=== PATIENT | female | born 1935 | race Hispanic/Latino ===

== ENCOUNTER 2017-09-12 09:56 | Emergency (ER) | payer MEDICARE ==
[2017-09-12 10:25] VITALS: RESP 18; TEMP 98.5; BMI 28.4
--- NOTE | 2017-09-12 10:32 | ED PDOC ---
Arrival/HPI - General Chief Complaint: Cough, Cold, Congestion Time Seen by Provider: 09/12/17 09:57 Historian: Patient, Family - History of Present Illness Narrative History of Present Illness (Text): 09/12/17 10:25 A 82 year old female, whose past medical history includes hypertension and hyperlipidemia, presents to the emergency department for unchanged bronchitis. The patient states she saw her primary doctor Dr. Denton 2 days ago who diagnosed her with bronchitis. She notes her symptoms have not gotten better and she is still having a lot of wheezing and dry cough. The patient denies any fever, chest pain, abdominal pain, or any other complaints at this time. Time/Duration: < week Symptom Onset: Gradual Symptom Course: Unchanged Activities at Onset: Light Context: Home Past Medical History - Provider Review Nursing Documentation Reviewed: Yes - Tetanus Immunization Tetanus Immunization: Unknown - Cardiac Hx Cardiac Disorders: Yes Hx Hypertension: Yes - Pulmonary Hx Respiratory Disorders: Yes Hx Bronchitis: Yes - Neurological Hx Neurological Disorder: No - HEENT Hx HEENT Disorder: No - Renal Hx Renal Disorder: No - Endocrine/Metabolic Hx Endocrine Disorders: No - Hematological/Oncological Hx Blood Disorders: No - Integumentary Hx Dermatological Disorder: No - Musculoskeletal/Rheumatological Hx Musculoskeletal Disorders: No - Gastrointestinal Hx Gastrointestinal Disorders: No - Genitourinary/Gynecological Hx Genitourinary Disorders: No - Psychiatric Hx Psychophysiologic Disorder: No Hx Depression: No Hx Emotional Abuse: No Hx Physical Abuse: No Hx Substance Use: No - Surgical History Hx Appendectomy: Yes Hx Section: Yes - Anesthesia Hx Anesthesia: No Hx Anesthesia Reactions: No - Suicidal Assessment Feels Threatened In Home Enviroment: No Family/Social History - Physician Review Nursing Documentation Reviewed: Yes Family/Social History: No Known Family HX Smoking Status: Never Smoked Hx Alcohol Use: No Hx Substance Use: No Hx Substance Use Treatment: No Allergies/Home Meds Allergies/Adverse Reactions: Allergies codeine Allergy (Verified 09/12/17 10:28) RASH Home Medications: Home Meds Medication Instructions Recorded Confirmed Azithromycin [Zithromax] 250 mg PO DAILY 09/12/17 09/12/17 Budesonide/Formoterol Fumarate 2 puff IH BID 09/12/17 09/12/17 [Symbicort] Cetirizine HCl [All Day Allergy 10 mg PO DAILY 09/12/17 09/12/17 Relief] Montelukast [Singulair] 10 mg PO DAILY 09/12/17 09/12/17 Promethazine [Phenergan Syrup] 6.25 mg PO TID PRN 09/12/17 09/12/17 Review of Systems - Physician Review All systems were reviewed & negative as marked: Yes - Review of Systems Constitutional: absent: Fevers Respiratory: Cough, Wheezing Cardiovascular: absent: Chest Pain Gastrointestinal: absent: Abdominal Pain Physical Exam Vital Signs Reviewed: Yes Vital Signs Temp Pulse Resp BP Pulse Ox 09/12/17 10:19 98.5 F 78 18 146/87 97 Temperature: Afebrile Blood Pressure: Normal Pulse: Regular Respiratory Rate: Normal Appearance: Positive for: Well-Appearing, Non-Toxic, Comfortable Pain Distress: None Mental Status: Positive for: Alert and Oriented X 3 - Systems Exam Head: Present: Atraumatic, Normocephalic Pupils: Present: PERRL Extroacular Muscles: Present: EOMI Conjunctiva: Present: Normal Mouth: Present: Moist Mucous Membranes Neck: Present: Normal Range of Motion Respiratory/Chest: Present: Wheezes (bilateral wheezing), Rhonchi. No: Respiratory Distress, Accessory Muscle Use Cardiovascular: Present: Regular Rate and Rhythm, Normal S1, S2. No: Murmurs Abdomen: Present: Normal Bowel Sounds. No: Tenderness, Distention, Peritoneal Signs Back: Present: Normal Inspection Upper Extremity: Present: Normal Inspection. No: Cyanosis, Edema Lower Extremity: Present: Normal Inspection. No: Edema Neurological: Present: GCS=15, CN II-XII Intact, Speech Normal Skin: Present: Warm, Dry, Normal Color. No: Rashes Psychiatric: Present: Alert, Oriented x 3, Normal Insight, Normal Concentration Medical Decision Making ED Course and Treatment: 09/12/17 10:30 Impression: A 82 year old with bronchitis. Differential Diagnosis included but are not limited to: Plan: -- EKG -- Chest X-ray -- Labs -- Douneb, Solu-medrol -- Urinalysis -- Reassess and disposition Progress Notes: 09/12/17 10:38 EKG: Ordered, reviewed, and independently interpreted the EKG. Rate : 83 BPM Rhythm : SR Interpretation : Left bundle branch block - old Comparison : No previous EKG for comparison. 09/12/17 11:48 Upon re-evaluation the patient states she is feeling much better and her lungs are clear. The patient is smiling and asking to be discharged. - Lab Interpretations Lab Results: 09/12/17 10:50 09/12/17 10:50 Lab Results 09/12/17 11:27: Urine Color Yellow, Urine Appearance Clear, Urine pH 7.0, Ur Specific [place] 1.010, Urine Protein Negative, Urine Glucose (UA) Negative, Urine Ketones Negative, Urine Blood Trace-intact H, Urine Nitrate Negative, Urine Bilirubin Negative, Urine Urobilinogen 0.2, Ur Leukocyte Esterase Negative , Urine RBC 2 - 5, Urine WBC Negative 09/12/17 10:50: Sodium 143, Potassium 4.1, Chloride 105, Carbon Dioxide 27, Anion Gap 14, BUN 15, Creatinine 0.5 L, Est GFR ( Amer) > 60, Est GFR ( Non-Af Amer) > 60, Random Glucose 100, Calcium 9.6, Magnesium 1.9, Total Bilirubin 0.5, AST 25, ALT 28, Alkaline Phosphatase 71, Lactate Dehydrogenase 406, Total Creatine Kinase 46, Troponin I < 0.01, NT-Pro-B Natriuret Pep 70.5, Total Protein 7.5, Albumin 4.4, Globulin 3.2, Albumin/Globulin Ratio 1.4 09/12/17 10:50: PT 13.2 H, INR 1.20 H, APTT 28.8 09/12/17 10:50: WBC 5.1 D, RBC 4.41, Hgb 12.5, Hct 37.1, MCV 84.1, MCH 28.3, MCHC 33.7, RDW 12.6, Plt Count 178, MPV 9.3, Gran % 53.2, Lymph % (Auto) 29.9, [place] % (Auto) 10.2 H, Eos % (Auto) 6.1 H, Baso % (Auto) 0.6, Gran # 2.72, Lymph # 1.5, [place] # 0.5, Eos # 0.3, Baso # 0.03 - RAD Interpretation Radiology Orders: 09/12/17 10:29 CHEST PORTABLE [RAD] Stat - Medication Orders Current Medication Orders: Discontinued Medications Albuterol/Ipratropium (Duoneb 3 Mg/0.5 Mg (3 Ml) Ud) 3 ml IH Q15M JOHNATHAN Stop: 09/12/17 11:01 Last Admin: 09/12/17 11:36 Dose: 3 ml Methylprednisolone (Solu-Medrol) 125 mg IVP STAT STA Stop: 09/12/17 10:30 Last Admin: 09/12/17 11:01 Dose: 125 mg IVP Administration Document 09/12/17 11:01 CNR (Rec: 09/12/17 11:01 CNR [id number]) Charges for Administration # of IVP Administrations 1 - Scribe Statement The provider has reviewed the documentation as recorded by the Scribe Juliette Aguilar Provider Scribe Attestation: All medical record entries made by the Scribe were at my direction and personally dictated by me. I have reviewed the chart and agree that the record accurately reflects my personal performance of the history, physical exam, medical decision making, and the department course for this patient. I have also personally directed, reviewed, and agree with the discharge instructions and disposition. Disposition/Present on Arrival - Present on Arrival Any Indicators Present on Arrival: No History of DVT/PE: No History of Uncontrolled Diabetes: No Urinary Catheter: No History of Decub. Ulcer: No History Surgical Site Infection Following: None - Disposition Have Diagnosis and Disposition been Completed?: Yes Diagnosis: Bronchitis Disposition: HOME/ ROUTINE Disposition Time: 11:53 Condition: STABLE Discharge Instructions (ExitCare): Acute Bronchitis (ED) Additional Instructions: please follow up with your doctor. return to er with worsening symptoms or concerns. Prescriptions: Prednisone 50 mg PO DAILY #5 tablet Referrals: Vika Izquierdo MD [Primary Care Provider] - Follow up with primary Forms: [employer] ([place])
[2017-09-12] MEDS: Albuterol-Ipratrop 3 mg / 0.5 (3 ml) UD IH SCH ×3 (11:01→11:36)
[2017-09-12 11:13] LABS: BASO # 0.03 K/mm3 (0.0-2.0); BASO % 0.6 % (0.0-3.0); EOS # 0.3 (0.0-0.7); EOS % 6.1 % (1.5-5.0); GRAN # 2.72 (1.4-6.5); GRAN % 53.2 % (50.0-68.0); HEMATOCRIT 37.1 % (36.0-48.0); LYMPH # 1.5 (1.2-3.4); LYMPH % 29.9 % (22.0-35.0); MEAN CELL VOLUME 84.1 fl (80.0-105.0); MEAN CORPUSCULAR HEMOGLOBIN 28.3 pg (25.0-35.0); MEAN CORPUSCULAR HGB CONC 33.7 g/dl (31.0-37.0); MEAN PLATELET VOLUME 9.3 fl (7.0-11.0); MONO # 0.5 (0.1-0.6); MONO % 10.2 % (1.0-6.0); RED CELL DISTRIBUTION WIDTH 12.6 % (11.5-14.5); WHITE BLOOD COUNT 5.1 10^3/ul (4.5-11.0)
[2017-09-12 11:21] LABS: INR 1.2 (0.93-1.08); PARTIAL THROMBOPLASTIN TIME 28.8 Seconds (25.1-36.5)
[2017-09-12 11:22] LABS: ALB/GLOB RATIO 1.4 (1.1-1.8); ALKALINE PHOSPHATASE 71 U/L (38-126); ALT/SGPT 28 U/L (7-56); AST/SGOT 25 U/L (14-36); BILIRUBIN,TOTAL 0.5 mg/dL (0.2-1.3); BLOOD UREA NITROGEN 15 mg/dL (7-21); CALCIUM 9.6 mg/dL (8.4-10.5); CARBON DIOXIDE 27 mmol/L (21-33); CHLORIDE 105 mmol/L (98-107); GFR AFRICAN-AMERICAN > 60; GLUCOSE,RANDOM 100 mg/dL (70-110); MAGNESIUM 1.9 mg/dL (1.7-2.2); POTASSIUM 4.1 mmol/L (3.6-5.0); SODIUM 143 mmol/L (132-148); TOTAL PROTEIN 7.5 g/dL (5.8-8.3)
[2017-09-12 11:34] LABS: TROPONIN I < 0.01 ng/mL
[2017-09-12 11:37] LABS: URINE BILIRUBIN NEGATIVE (NEGATIVE); URINE BLOOD TRACE-INTACT (NEGATIVE); URINE GLUCOSE (UA) NEGATIVE (NEGATIVE); URINE KETONE NEGATIVE (NEGATIVE); URINE LEUKOCYTE ESTERASE NEGATIVE Leu/uL (NEGATIVE); URINE PROTEIN NEGATIVE mg/dL (<30 mg/dL); URINE UROBILINOGEN 0.2 E.U./dL (<1 E.U./dL)
[2017-09-12 11:39] LABS: URINE APPEARANCE CLEAR (CLEAR); URINE COLOR YELLOW (YELLOW)
[2017-09-12 11:41] LABS: URINE WBC NEGATIVE /hpf (0-6)
--- NOTE | 2017-09-12 11:43 | RAD ---
HISTORY: Cough COMPARISON: 09/14/2013. FINDINGS: LUNGS: The lungs are well inflated. There is mild pulmonary venous congestion. PLEURA: No significant pleural effusion identified, no pneumothorax apparent. CARDIOVASCULAR: There is borderline cardiomegaly. OSSEOUS STRUCTURES: No significant abnormalities. VISUALIZED UPPER ABDOMEN: Normal. OTHER FINDINGS: None. IMPRESSION: No active pulmonary disease.
[2017-09-12 12:07] VITALS: BP 138/80; PULSE 86; O2SAT 99
--- NOTE | 2017-09-12 18:39 | CARD ---
APPROVED REPORT EKG Measurement Heart [id number] <Conclusion> Sinus rhythm with marked sinus arrhythmia Left bundle branch block Abnormal ECG
== END 2017-09-12 12:07 | disposition home or self-care (01) ==
LOC: ED 09:56
DX: J40 Bronchitis, not specified as acute or chronic (principal); E78.5 Hyperlipidemia, unspecified; I10 Essential (primary) hypertension
CPT/HCPCS: 71010; 80053; 81001; 82550; 83615; 83735; 83880; 84484; 85025; 85610; 85730; 93005; 96374; 99283; J2930

== ENCOUNTER 2017-11-06 06:44 | Day surgery (SDC) | payer MEDICARE ==
[2017-10-30 08:40] VITALS: BMI 25.4
[2017-11-06] MEDS ORDERED: Propofol 10 mg/ml Inj (20 ML) ONE (07:43)
[2017-11-06] MEDS ORDERED: Etomidate 40 MG/20 ML ML IV ONE (07:44)
[2017-11-06] MEDS ORDERED: Lidocaine 2% Inj (20ml) ONE (07:44)
[2017-11-06] MEDS ORDERED: Sodium Chloride 0.9% 1,000 ML IV SCH (08:30)
[2017-11-06 09:16] VITALS: BP 140/73; PULSE 71; RESP 18; TEMP 97.7; O2SAT 97
== END 2017-11-06 10:02 | disposition home or self-care (01) ==
LOC: ENDO 06:44
PROVIDERS: ATTEND Specialist
DX: Z12.11 Encounter for screening for malignant neoplasm of colon (principal); D12.5 Benign neoplasm of sigmoid colon; K57.30 Diverticulosis of large intestine without perforation or abscess without bleeding; K64.8 Other hemorrhoids; K63.89 Other specified diseases of intestine; I10 Essential (primary) hypertension; E78.5 Hyperlipidemia, unspecified
CPT/HCPCS: 45385; 88305; J2704; J7040 ×2

== ENCOUNTER → 2019-01-14 | Outpatient (CLI) | payer MEDICARE | LOC: RAD 10:34 ==